=== PATIENT | male | born 1990 | race Two or more races ===

== ENCOUNTER 2022-08-04 12:07 | Emergency (ER) | payer MEDICAID ==
[~2022-08-04] VITALS: Ht 170.2 cm; Wt 90.9 kg
[2022-08-04] MEDS ORDERED: ibuprofen tablet 400 MG TABLET PO ONE (15:15)
[2022-08-04 15:48] VITALS: BP 139/88
[2022-08-04] MEDS ORDERED: LIDO-15 TD ×2 (16:51→17:34)
[2022-08-04] MEDS ORDERED: IBUP-1986 PO ×2 (16:51→17:34)
== END 2022-08-04 17:43 | disposition home or self-care (01) ==
LOC: ER 12:08
DX: M54.50 Low back pain, unspecified (principal); M25.551 Pain in right hip; M79.661 Pain in right lower leg; G89.29 Other chronic pain; Z88.8 Allergy status to other drugs, medicaments and biological substances; Z79.899 Other long term (current) drug therapy
CPT/HCPCS: 73502; 99283

== ENCOUNTER 2022-09-20 10:29 | Emergency (ER) | payer MEDICAID ==
[~2022-09-20] VITALS: Ht 170.2 cm; Wt 87.8 kg
[~2022-09-20 10:29] MED LIST: IBUP-1986 PO; LIDO-15 TD
[2022-09-20 10:38] VITALS: BP 130/77
== END 2022-09-20 11:46 | disposition home or self-care (01) ==
LOC: ER 10:29
DX: F32.9 Major depressive disorder, single episode, unspecified (principal); F41.9 Anxiety disorder, unspecified; G89.29 Other chronic pain; F17.200 Nicotine dependence, unspecified, uncomplicated; F12.90 Cannabis use, unspecified, uncomplicated; Z72.89 Other problems related to lifestyle; Z79.899 Other long term (current) drug therapy; Z88.8 Allergy status to other drugs, medicaments and biological substances
CPT/HCPCS: 99284

== ENCOUNTER 2022-10-13 00:11 | Emergency (ER) | payer MEDICAID ==
[~2022-10-13] VITALS: Ht 170.2 cm; Wt 90.0 kg
[2022-10-13] MEDS ORDERED: acetaminophen 325mg tablet PO ONE (01:15)
[2022-10-13] MEDS ORDERED: proCHLORperazine 10mg tablet PO ONE (01:15)
[2022-10-13] MEDS ORDERED: ibuprofen tablet 400 MG TABLET PO ONE (01:15)
[2022-10-13 01:22] VITALS: BP 111/73
== END 2022-10-13 01:23 | disposition home or self-care (01) ==
LOC: ER 00:12
DX: R51.9 Headache, unspecified (principal); G89.29 Other chronic pain; F41.9 Anxiety disorder, unspecified; F32.9 Major depressive disorder, single episode, unspecified; F12.90 Cannabis use, unspecified, uncomplicated; Z72.89 Other problems related to lifestyle; Z88.8 Allergy status to other drugs, medicaments and biological substances; Z79.899 Other long term (current) drug therapy
CPT/HCPCS: 99284; Q0164

== ENCOUNTER 2022-12-11 21:25 | Emergency (ER) | payer MEDICAID ==
[~2022-12-11] VITALS: Ht 170.2 cm; Wt 90.9 kg
[2022-12-11 21:43] VITALS: BP 123/84; PULSE 82; RESP 16; TEMP 98.1; O2SAT 97
--- NOTE | 2022-12-11 23:00 | NUR ---
pt refused blood draw at this time.
== END 2022-12-12 02:00 | disposition left against medical advice (07) ==
LOC: ER 21:25
DX: R56.9 Unspecified convulsions (principal); Z53.21 Procedure and treatment not carried out due to patient leaving prior to being seen by health care provider
CPT/HCPCS: 71045; 93005; 99281

== ENCOUNTER 2023-06-22 10:43 | Outpatient (CLI) | payer MEDICAID | END 2023-06-22 23:59 | disposition home or self-care (01) | LOC: RAD 10:43 | PROVIDERS: ATTEND Physician Assistant Medical | DX: R47.89 Other speech disturbances (principal); G43.901 Migraine, unspecified, not intractable, with status migrainosus | CPT/HCPCS: 95819 ==